=== PATIENT | female | born 1945 | race Asian ===

== ENCOUNTER 2017-06-07 05:55 | Day surgery (SDC) | payer MEDICARE, OTHER ==
[~2017-06-07] VITALS: Ht 154.9 cm; Wt 38.0 kg
[~2017-06-07 05:55] MED LIST: ALEN70TA48 PO; ASPI-1093 PO; CALC-51 PO; LISI-661 PO; METF500T4 PO; OMEP20 PO; SENN-106 PO; SIMV-260 PO; VITAD1000 PO
[2017-06-07] MEDS ORDERED: SODIUM CHLORIDE 0.9% 1,000 ML IV ONE ×2 (06:04→06:15)
[2017-06-07 06:57] LABS: GLUCOSE,POINT OF CARE 146 MG/DL (70-110)
[2017-06-07] MEDS ORDERED: MIDAZOLAM HCL 2 MG/2 ML VIAL ONE (07:34)
[2017-06-07] MEDS ORDERED: FentaNYL CITRATE-PF 100 MCG/2 ML VIAL ONE (07:34)
[2017-06-07] MEDS ORDERED: MethylPREDNISolone SOD SUCC 125 MG/2 ML VIAL IVP ONE (08:30)
[2017-06-07] MEDS ORDERED: MethylPREDNISolone SOD SUCC 125 MG/2 ML VIAL ONE (08:50)
[2017-06-07] MEDS ORDERED: ALBUTEROL SULFATE 2.5 MG/0.5 ML NEB SOLUTION NEB ONE (17:42)
[2017-06-07] MEDS ORDERED: LIDOCAINE HCL 2% 30 ML JELLY TP ONE (17:42)
[2017-06-07] MEDS ORDERED: BENZOCAINE 20% 50 MCG/SPRAY 57 GM TP ONE (17:42)
[2017-06-07] MEDS ORDERED: LIDOCAINE HCL 4% 50 ML SOLUTION TP ONE (17:42)
[2017-06-07] MEDS ORDERED: OXYGEN THERAPY IH SCH (20:00)
== END 2017-06-07 10:15 | disposition home or self-care (01) ==
LOC: SURGERY 05:55
PROVIDERS: ATTEND Internal Medicine Critical Care Medicine
DX: J38.4 Edema of larynx (principal); B37.0 Candidal stomatitis; E11.9 Type 2 diabetes mellitus without complications; M81.0 Age-related osteoporosis without current pathological fracture; Z79.82 Long term (current) use of aspirin; Z79.899 Other long term (current) drug therapy
CPT/HCPCS: 31623; 31624; 71010; 82962; 87015 ×2; 87070; 87101; 87205; 87220; 88108; 88312; 93005; J2250; J2930; J3010; J7030